=== PATIENT | female | born 2000 | race African-American/Black ===

== ENCOUNTER 2025-03-07 10:33 | Outpatient (CLI) | payer OTHER ==
[~2025-03-07] VITALS: Ht 167.6 cm; Wt 85.5 kg
[2025-03-07] MEDS ORDERED: PRENTAB9 PO (10:48)
[2025-03-07] MEDS ORDERED: HOME MED LIST COMPLETE! XX SCH (10:50)
[2025-03-07 10:51] VITALS: BP 101/68
[2025-03-07 12:51] VITALS: BP 102/64
== END 2025-03-07 13:38 | disposition home or self-care (01) ==
LOC: M LDO 10:33
PROVIDERS: ATTEND Advanced Practice Midwife
DX: O36.8130 Decreased fetal movements, third trimester, not applicable or unspecified (principal); Z3A.31 31 weeks gestation of pregnancy
CPT/HCPCS: 59025; 76815; 76819; 76820; G0463